=== PATIENT | female | born 1950 | race African-American/Black ===

== ENCOUNTER 2019-04-24 13:31 | Outpatient (CLI) | payer MEDICARE, MEDICAID ==
[~2019-04-24] VITALS: Ht 172.7 cm; Wt 94.8 kg
[~2019-04-24 13:31] MED LIST: CIPRO500 MG PO; CYMBALTA20 MG PO; NEURONTIN600 MG PO; PRILOSEC20 MG PO; PROAIR HFA8.5 GM IH; RESTORIL7.5 MG PO; TYLENOL #31 TAB PO; VICODIN ES 7.51 EACH PO; VYTORIN 10-201 EACH PO; ZESTRIL20 MG PO
[2019-04-24 13:53] VITALS: BP 145/76
[2019-04-24] MEDS ORDERED: NEURONTIN400 MG ORAL (13:53)
--- NOTE | 2019-04-24 14:16 | GI Progress Note ---
Assessment/Plan Problems: (1) Leg abrasion, non-infected SNOMED: 450201921 (2) Abdominal pain ICD Codes: R10.9 - Abdominal pain SNOMED: 82996477 (3) Hypertension (4) Varicose vein of leg ICD Codes: I83.93 - Asymptomatic varicose veins of bilateral lower extremities SNOMED: 53335463 Status: stable, unchanged Status Narrative Discussed with Dr. Venegas Assessment/Plan History of cholecystectomy with bile leak, status post ERCP with stent placement and removal abdominal pelvis CT ordered to evaluate abdominal pain We will consider colonoscopy pending imaging results Patient instructed to continue stool softener Colace 100 mg daily or as needed Return to clinic after imaging study The patient was seen and examined at bedside and all new and available data was reviewed in the patients chart. I agree with the above findings, impression and plan. (Patient seen earlier today. Signature stamp does not reflect patient encounter time.). - Kelby Venegas MD Subjective Subjective Left lower quadrant abdominal pain x1 year The patient states her pain occurs on and off Denies any diarrhea States that she has occasional constipation due to her pain medication Patient stated she had a colonoscopy about 3 years ago, however was inconclusive due to a long: Which the scope was unable to reach the cecum. Objective Last 24 Hour Vital Signs Date Time Temp Pulse Resp B/P (MAP) Pulse Ox O2 Delivery O2 Flow Rate FiO2 04/24/19 13:53 89 18 145/76 (99) 99 General Appearance: WD/WN, no apparent distress, alert Cardiovascular: normal rate Respiratory/Chest: normal breath sounds, no respiratory distress Abdominal Exam: normal bowel sounds, non tender, soft Extremities: normal range of motion, non-tender Ariela Lassiter [employer] Apr 24, 2019 14:16
== END 2019-04-24 15:31 | disposition home or self-care (01) ==
LOC: PAN 13:31
DX: R10.9 Unspecified abdominal pain (principal); I10 Essential (primary) hypertension; I83.93 Asymptomatic varicose veins of bilateral lower extremities; K59.00 Constipation, unspecified; S80.819A Abrasion, unspecified lower leg, initial encounter; Z90.49 Acquired absence of other specified parts of digestive tract
CPT/HCPCS: 99202

== ENCOUNTER 2019-06-12 13:05 | Outpatient (CLI) | payer MEDICARE, MEDICAID ==
[~2019-06-12 13:05] MED LIST changes: +NEURONTIN400 MG ORAL
--- NOTE | 2019-06-12 13:19 | General Progress Note ---
Assessment/Plan Problem List: (1) Diverticulosis ICD Codes: K57.90 - Diverticulosis of intestine, part unspecified, without perforation or abscess without bleeding SNOMED: 796179932 (2) severe left hip arthritis (3) Hypertension (4) Abdominal pain ICD Codes: R10.9 - Abdominal pain SNOMED: 56240686 Assessment/Plan: plan Colonoscopy CT reviewed with, the patient needs fi for severe arthritis Subjective ROS Limited/Unobtainable: Yes Allergies: Coded Allergies: ASPIRIN (Verified Allergy, Unknown, 12/27/09) SULFA (SULFONAMIDE ANTIBIOTICS) (Verified Allergy, Unknown, 04/24/19) Uncoded Allergies: SYNTETIC PLACTIC (Allergy, Intermediate, 04/24/19) Objective General Appearance: alert EENT: normal ENT inspection Neck: supple Cardiovascular: normal rate Respiratory/Chest: lungs clear Abdomen: normal bowel sounds, non tender, soft Extremities: non-tender Kelby Venegas MD Jun 12, 2019 13:19
[2019-06-12 15:15] VITALS: BP 141/76
== END 2019-06-12 15:05 | disposition home or self-care (01) ==
LOC: PAN 13:05
DX: K57.90 Diverticulosis of intestine, part unspecified, without perforation or abscess without bleeding (principal); M16.12 Unilateral primary osteoarthritis, left hip; I10 Essential (primary) hypertension; R10.9 Unspecified abdominal pain; Z88.6 Allergy status to analgesic agent; Z88.2 Allergy status to sulfonamides